=== PATIENT | female | born 1965 | race Caucasian/White ===

== ENCOUNTER 2022-12-01 09:53 | Day surgery (SDC) | payer OTHER ==
[~2022-12-01] VITALS: Ht 165.1 cm; Wt 83.9 kg
[2022-12-01] MEDS ORDERED: fentaNYL citrate 0.05 MG/ML VIAL ONE (12:18)
[2022-12-01] MEDS ORDERED: diphenhydrAMINE 50 MG/ML VIAL ONE (12:18)
[2022-12-01] MEDS ORDERED: MIDAZOLAM 5 MG/5 ML VIAL ONE (12:19)
[2022-12-01] MEDS ORDERED: fentaNYL citrate 0.05 MG/ML VIAL IVP ONE (13:05)
[2022-12-01] MEDS ORDERED: MIDAZOLAM 2 MG/2 ML VIAL IV ONE (13:05)
== END 2022-12-01 13:45 | disposition home or self-care (01) ==
LOC: MDS 09:53 → MMU 10:00 → MDS 13:45
PROVIDERS: ATTEND Internal Medicine Gastroenterology
DX: R10.13 Epigastric pain (principal); K29.70 Gastritis, unspecified, without bleeding; K44.9 Diaphragmatic hernia without obstruction or gangrene; E78.00 Pure hypercholesterolemia, unspecified
CPT/HCPCS: 43239; J2250; J3010; J1200